=== PATIENT | female | born 1955 | race Caucasian/White ===

== ENCOUNTER 2025-07-30 12:27 | Emergency (ER) | payer MEDICARE ==
[~2025-07-30] VITALS: Ht 154.9 cm; Wt 80.7 kg
[~2025-07-30 12:27] MED LIST: AMOX TR-K CLV1 EAC2 PO; ASPIRIN81 M2 PO; ATORVASTATIN CA20 MG PO; BYETTA5 MCG/0.02 SQ; COLESTIPOL HCL1 GM PO; CRESTOR5 MG PO; CYMBALTA20 MG PO; DICYCLOMINE HCL20 MG PO; DOXYCYCLINE HY100 MG PO; FLONASE16 GM NS; FLUTICASONE INH; FOLIC ACID0.4 MG PO; GABAPENTIN300 MG PO; GABAPENTIN600 MG PO; GLIMEPIRIDE2 MG PO; HUMALOG SQ; JARDIANCE25 MG PO; LANTUS 3ML100 UNITS/ SQ; LEVOCETIRIZINE D5 MG PO; LISINOPRIL10 MG PO; LORATADINE10 MG PO; MEDROL4 M2 PO; METFORMIN HCL1000 MG PO; METFORMIN HCL500 MG PO; METHOTREXA25 MG/1 ML PO; NAPROXEN250 MG PO; OZEMPIC0.25 MG/02 SQ; PANTOPRAZOLE SO40 MG PO; PROAIR DIGIHAL90 MCG INH; PROAIR HFA8.5 GM IH; RALOXIFENE HCL60 MG PO; Z.0.GLIMEPIRIDE1 MG PO; Z.0.JANUMET 50-1,01 PO; Z.0.LIPITOR20 MG PO; Z.0.LISINOPRIL30 MG PO
[2025-07-30 13:47] VITALS: TEMP 98.3
[2025-07-30 16:44] VITALS: PULSE 79; RESP 18
[2025-07-30 16:46] VITALS: BP 159/80; PULSE 79; RESP 18; O2SAT 100
== END 2025-07-30 16:00 | disposition home or self-care (01) ==
LOC: ER 12:35 → MERGE 12:35 → ER 16:00
DX: M25.562 Pain in left knee (principal); M25.561 Pain in right knee; S80.02XA Contusion of left knee, initial encounter; S80.01XA Contusion of right knee, initial encounter; W01.0XXA Fall on same level from slipping, tripping and stumbling without subsequent striking against object, initial encounter; Y93.01 Activity, walking, marching and hiking; Y92.89 Other specified places as the place of occurrence of the external cause; I10 Essential (primary) hypertension; E11.9 Type 2 diabetes mellitus without complications; J45.909 Unspecified asthma, uncomplicated; G47.30 Sleep apnea, unspecified; M81.0 Age-related osteoporosis without current pathological fracture; Z85.828 Personal history of other malignant neoplasm of skin; Z87.19 Personal history of other diseases of the digestive system
CPT/HCPCS: 36415; 82948; 99283